=== PATIENT | male | born 1995 | race Caucasian/White ===

== ENCOUNTER 2023-08-28 05:45 | Emergency (ER) | payer OTHER, SELFPAY ==
[2023-08-28 05:59] VITALS: BP 110/70
[2023-08-28] MEDS: TYLENOL 1000 MG PO (06:16)
[2023-08-28 07:13] LABS: COVID-19 Antigen Negative (Negative)
--- NOTE | 2023-08-28 08:14 | ED.GENMED ---
History of Present Illness
General
Chief Complaint: Cough
Source: patient
Time Seen by Provider: 08/28/23 08:07
Travel History
Have you had any contact with someone who has COVID-19?: No
Do you have any symptoms of coronavirus? Fever > 100 degrees, chills, cough, shortness of breath, sore throat, loss of taste or smell, muscle aches, or headache?: No
History of Present Illness
History of Present Illness:
27-year-old male with past medical history of anxiety and depression presenting the emergency department for evaluation of flulike symptoms that started this past , cough, fevers, body aches, chills, this morning woke up feeling as if he had
bubbles in his chest with continuing cough prompting him to contact EMS who brought patient to the ER for further evaluation. No medications were given prior to arrival. No known sick contacts, recent travel or recent antibiotics. Patient denies
any history of respiratory problems. No other concerns at this time.
Past History
Past History
ED Past Medical History: Psychiatric
ED Past Surgical History: Appendectomy
Social History
Tobacco: Non-smoker
Alcohol: None
Drug: None
Personal: Single
Living: with family
Review of Systems
Review of Systems
All Other Systems: ROS reviewed and negative except as documented in HPI and ROS
Phy Exam
Physical Exam
Physical Exam:
GENERAL: Alert , in no apparent distress
EYE: conjunctiva clear
NECK: Supple
ENT: o/p clr, mmm.
CARDIAC: Regular rate and rhythm
LUNGS: Clear breath sounds bilaterally, no acute respiratory distress, no wheezes/rales/rhonchi
NEUROLOGICAL: Alert and oriented
SKIN: Warm and dry, skin intact.
MUSCULOSKELETAL: well perfused.
PSYCH: Normal and appropriate interaction.
Scores
Heart Failure Risk
Heart Failure Risk Score: Not Applicable
Heart Score for Chest Pain Patients
STEMI patient?: Not applicable
Withdrawal Assessment of Alcohol
Withdrawal Assessment Completed?: Not applicable
Course
Orders/Labs/Results
Orders:
Orders
08/28/23 06:09
Chest [CR Chest - 2 Views ] Urgent
Comment:
Reason For Exam: coughing/fever
08/28/23 06:12
Acetaminophen [Tylenol] 1,000 mg .ROUTE .STK-MED ONE
08/28/23 06:15
Acetaminophen [Tylenol] 1,000 mg PO NOW STA
08/28/23 06:21
COVID-19 Antigen Urgent
Source: Nasal Swab
Influenza A+B Rapid Molecular Routine
SHANNAN Source: Nasal Swab
Specimen Description:
Vital Signs
Initial and Last Documented VS:
Initial Vital Signs
Temp Pulse Resp BP Pulse Ox
102.1 F H 104 16 110/70 95
08/28/23 05:59 08/28/23 05:59 08/28/23 05:59 08/28/23 05:59 08/28/23 05:59
Last Documented Vital Signs
Temp Pulse Resp BP Pulse Ox
102.1 F H 104 16 110/70 95
08/28/23 05:59 08/28/23 05:59 08/28/23 05:59 08/28/23 05:59 08/28/23 05:59
MDM/Problems Addressed
Differential Diagnosis Includes:
COVID, flu, other viral etiology, pneumonia
MDM/Problems Addressed:
27-year-old male present emergency department for 3 to 4 days of URI-like symptoms, found to be febrile here at 102.1. No acute respiratory distress. Vital signs outside of pyrexia are within normal limits. Triage initiated COVID and flu swabs as
well as chest x-ray. Patient did test positive for influenza B. Chest x-ray is unremarkable for any acute pathologies. Discussed supportive care with patient in regards to flu. He not a candidate for Tamiflu given symptoms have been ongoing for
greater than 3 days. Discussed return precautions emergency department but otherwise stable for discharge home.
*Radiology
Radiology exam reviewed: preliminary read by ED provider (No acute infiltrates or consolidations)
*Pulse Oximetry
Patient hypoxic: no
*Critical Care Note
Total Time (30-74mins, 75-104mins- exclusive of procedures): Not Applicable
ED Attending Note
-
Portions of this chart may have been created with voice recognition software.� Occasional wrong word or��sound alike� substitutions may have occurred due to the inherent limitations of voice recognition software.
Discharge Plan
Departure
Patient Disposition: Home (Routine Discharge)
Date of Disposition: 08/28/23
Time of Disposition: 08:14
Patient with high blood pressure during this ER visit?: No
Discharge Problem:
Influenza B
Instructions: Flu, Adult (DC)
Stand Alone Forms: Return to Work
Interventions
Interventions:
*Risk Screen - Suicide Last Done: 08/28/23 05:59
*General Assessment Last Done: 08/28/23 05:59
*Neglect/Abuse Screening Last Done: 08/28/23 05:59
ED- Fall Risk Assessment Last Done: 08/28/23 07:58
*ED COVID-19 Vaccine History Last Done: 08/28/23 05:59
ED- Pulmonary Assessment Last Done: 08/28/23 07:58
Discharge Date and Time
Print Language: YI
[2023-08-28 08:24] VITALS: BP 106/67
== END 2023-08-28 08:25 | disposition home or self-care (01) ==
LOC: EMR 05:45
PROVIDERS: EMERGENCY PHYSICIAN Emergency Medicine
DX: J10.1 Influenza due to other identified influenza virus with other respiratory manifestations (principal); F41.9 Anxiety disorder, unspecified; F32.A Depression, unspecified
CPT/HCPCS: 99284; 71046; 87502; 87811

== ENCOUNTER 2024-05-11 14:44 | Emergency (ER) | payer OTHER, SELFPAY ==
[2024-05-11 14:54] VITALS: BP 109/75
[2024-05-11 15:39] VITALS: BMI 25.9
--- NOTE | 2024-05-11 15:52 | ED.GENMED ---
History of Present Illness
General
Chief Complaint: Crisis Evaluation
Source: patient
Exam Limitations: none
Time Seen by Provider: 05/11/24 15:03
Nursing documentation reviewed up to this point in time: agreed with
History of Present Illness
History of Present Illness:
28-year-old male single lives with his family history of anxiety previously on Lexapro stopped due to GI side effects presents with anxiety depression and thoughts of suicide apparently speaks with some friends who give him bad ideas which makes him
suicidal, no drugs or alcohol, no hallucinations, has no plan, states symptoms are worse during the week better on the weekends apparently he made a statement to his family who insisted that he come in today to get evaluated, no drug or alcohol
ingestion no overdose
Past History
Past History
ED Past Medical History: Psychiatric
ED Past Surgical History: Appendectomy
Social History
Tobacco: Non-smoker
Alcohol: None
Drug: None
Personal: Single
Living: with family
Employment: Employed
Review of Systems
Review of Systems
All Other Systems: Not applicable
Psychiatric: Reports depression, anxiety and suicidal; Denies hallucinations
Phy Exam
Physical Exam
Physical Exam:
Physical Exam
General: no apparent distress, not acutely ill
Neck: No jaundice
Heart: s1/s2 regular rate and rhythm, no murmur. equal radial pulses.
Lungs: no acute respiratory distress. clear bilaterally
Neuro: alert and oriented. no focal neurological deficits
Skin: no rash
Psychiatric: Cooperative, not hallucinating admits to suicidal thoughts earlier none now no plan
Extremities: no edema
Course
Orders/Labs/Results
Orders:
Orders
05/11/24 15:43
Crisis Consult Routine
Reason for Consult: anxiety
05/11/24 16:12
Urine Drug Abuse Screen Urgent
Date Specimen was Collected: 05/11/24
Time Specimen was Collected: 16:40
05/11/24 17:06
Acetaminophen Urgent
Alcohol Urgent
Complete Blood Count/With Diff Urgent
Comprehensive Metabolic Panel Urgent
Salicylate Urgent
Abnormal Lab Results
05/11/24
17:06
MCH 31.2 H pg
(27.0-31.0)
Carbon Dioxide 34 H mmol/L
(22-30)
Salicylates < 1.0 L mg/dl
(2.0-20.0)
Acetaminophen < 10 L ug/ml
(10-30)
05/11/24 17:06
05/11/24 17:06
Vital Signs
Initial and Last Documented VS:
Initial Vital Signs
Temp Pulse Resp BP Pulse Ox
98.6 F 96 18 109/75 97
05/11/24 14:54 05/11/24 14:54 05/11/24 14:54 05/11/24 14:54 05/11/24 14:54
Last Documented Vital Signs
Temp Pulse Resp BP Pulse Ox
98.5 F 96 18 109/75 97
05/11/24 15:39 05/11/24 14:54 05/11/24 14:54 05/11/24 14:54 05/11/24 14:54
MDM/Problems Addressed
Differential Diagnosis Includes:
Depression anxiety suicidal thoughts no signs of intoxication or overdose
MDM/Problems Addressed:
Anxiety suicidal
Chronic conditions affecting care: Psychiatric illness
Acute Exacerbation and/or Progression of Chronic Illness: Psychiatric illness
*Pulse Oximetry
Patient hypoxic: no
*Critical Care Note
Total Time (30-74mins, 75-104mins- exclusive of procedures): Not Applicable
Update Note
Update Note:
Vital signs stable no intoxication no ingestion, patient looks well, is cooperative, crisis has been consulted
Update discussed with crisis, mobile crisis saw the patient earlier today recommended inpatient patient voluntary will check some screening labs
Labs noted patient medically clear
ED Attending Note
-
Portions of this chart may have been created with voice recognition software.� Occasional wrong word or��sound alike� substitutions may have occurred due to the inherent limitations of voice recognition software.
Discharge Plan
Departure
Patient Disposition: Psych Facility
Date of Disposition: 05/11/24
Time of Disposition: 19:04
Patient with high blood pressure during this ER visit?: No
Condition: Good
Discharge Problem:
Suicidal ideation
Prescriptions:
No Action
No Current Medications
0
Referrals:
Alfonso Castellanos, DO [Family Provider] -
Interventions
Interventions:
*Risk Screen - Suicide Last Done: 05/11/24 14:49
*General Assessment Last Done: 05/11/24 14:57
*Neglect/Abuse Screening Last Done: 05/11/24 14:57
*ED COVID-19 Vaccine History Last Done: 05/11/24 15:55
ED-Psychological Assessment Last Done: 05/11/24 15:55
Discharge Date and Time
Print Language: MAURITIAN
[2024-05-11 17:14] LABS: % Basophils 0.7 % (0-2); % Eosinophils 0.7 % (0-6); % Immature Granulocytes 0.3 % (0-0.5); % Lymphocytes 38.3 % (20.5-51.1); % Monocytes 7.7 % (1.7-9.3); % Neutrophils 52.3 % (42.2-75.2); Absolute Basophils 0.1 10^3/uL (0-0.2); Absolute Eosinophils 0.1 10^3/uL (0-0.7); Absolute Lymphocytes 2.6 10^3/uL (1.2-3.4); Absolute Monocytes 0.5 10^3/uL (0.1-0.6); Absolute Neutrophils 3.6 10^3/uL (1.4-6.5); Hematocrit 45.8 % (39.0-52.0); Hemoglobin 15.6 g/dL (13.0-18.0); Mean Corp Hgb Conc. 34.1 g/dL (33.0-37.0); Mean Corpuscular Hgb 31.2 pg (27.0-31.0); Mean Corpuscular Volume 91.6 fL (80.0-94.0); Mean Platelet Volume 9.4 fL (7.4-10.4); Nucleated Red Blood Cells % 0 % (-); Platelet Count 252 10^3/uL (130-400); Red Cell Dist. Width 12.1 % (11.5-14.5); White Blood Cell Count 6.9 10^3/uL (4.8-10.8)
[2024-05-11 17:28] LABS: ALT (SGPT) 34 U/L (0-50); AST (SGOT) 28 U/L (17-59); Acetaminophen < 10 ug/ml (10-30); Albumin 4.7 g/dl (3.5-5.0); Alkaline Phosphatase 64 U/L (38-126); Blood Urea Nitrogen 16 mg/dl (9-20); Calcium 9.4 mg/dl (8.4-10.2); Carbon Dioxide 34 mmol/L (22-30); Chloride 100 mmol/L (98-107); Estimated Creatinine Clearance > 125 ml/min; Glucose 92 mg/dl (70-99); Potassium 4.5 mmol/L (3.5-5.1); Salicylate < 1.0 mg/dl (2.0-20.0); Sodium 139 mmol/L (135-145); Total Bilirubin 0.2 mg/dl (0.2-1.3); Total Protein 7.1 g/dl (6.3-8.2); eGFR > 60.00
[2024-05-11 17:29] LABS: Alcohol None Detected
--- NOTE | 2024-05-11 17:56 | EDRN ---
crisis called this RN and notified this RN that the pt is going to be picked up and taken to [facility] at 1930
[2024-05-11 20:03] LABS: Amphetamines Negative (Negative); Barbiturates Negative (Negative); Benzodiazepines Negative (Negative); Buprenorphine Negative (Negative); Cocaine Negative (Negative); Marijuana Negative (Negative); Methadone Negative (Negative); Methamphetamines Negative (Negative); Opiates Negative (Negative); Phencyclidine Negative (Negative); Tricyclic Antidepressants Negative (Negative)
== END 2024-05-11 19:22 ==
LOC: EMR 14:44
PROVIDERS: EMERGENCY PHYSICIAN Emergency Medicine; FAMILY PHYSICIAN Family Medicine
DX: R45.851 Suicidal ideations (principal); F41.8 Other specified anxiety disorders; Z81.8 Family history of other mental and behavioral disorders; Z90.49 Acquired absence of other specified parts of digestive tract
CPT/HCPCS: 99285; 80053; 80143; 80179; 80306; 82077; 85025

== ENCOUNTER 2024-11-19 12:38 | Emergency (ER) | payer OTHER, SELFPAY ==
[2024-11-19] VITALS (11 sets, daily range): BP systolic 99–114; BP diastolic 62–76; BMI 30.7
[2024-11-19 13:42] LABS: % Basophils 0.8 % (0-2); % Eosinophils 0.8 % (0-6); % Immature Granulocytes 0.2 % (0-0.5); % Lymphocytes 42.4 % (20.5-51.1); % Monocytes 5.7 % (1.7-9.3); % Neutrophils 50.1 % (42.2-75.2); Absolute Lymphocytes 2.2 10^3/uL (1.2-3.4); Absolute Monocytes 0.3 10^3/uL (0.1-0.6); Absolute Neutrophils 2.6 10^3/uL (1.4-6.5); Hematocrit 44.8 % (39.0-52.0); Hemoglobin 15.9 g/dL (13.0-18.0); Mean Corp Hgb Conc. 35.5 g/dL (33.0-37.0); Mean Corpuscular Hgb 31.1 pg (27.0-31.0); Mean Corpuscular Volume 87.5 fL (80.0-94.0); Mean Platelet Volume 10.3 fL (7.4-10.4); Nucleated Red Blood Cells % 0 % (-); Platelet Count 235 10^3/uL (130-400); Red Blood Cell Count 5.12 10^6/uL (4.70-6.10); Red Cell Dist. Width 11.7 % (11.5-14.5); White Blood Cell Count 5.1 10^3/uL (4.8-10.8)
[2024-11-19 13:58] LABS: ALT (SGPT) 38 U/L (0-50); AST (SGOT) 29 U/L (17-59); Acetaminophen 13 ug/ml (10-30); Albumin 5.2 g/dl (3.5-5.0); Alcohol None Detected; Alkaline Phosphatase 57 U/L (38-126); Blood Urea Nitrogen 15 mg/dl (9-20); Calcium 10.1 mg/dl (8.4-10.2); Carbon Dioxide 29 mmol/L (22-30); Chloride 103 mmol/L (98-107); Estimated Creatinine Clearance > 125 ml/min; Glucose 88 mg/dl (70-99); Potassium 4.6 mmol/L (3.5-5.1); Salicylate < 1.0 mg/dl (2.0-20.0); Sodium 141 mmol/L (135-145); Total Bilirubin 0.8 mg/dl (0.2-1.3); Total Protein 7.8 g/dl (6.3-8.2); eGFR > 60.00
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
[2024-11-19 17:22] LABS: Acetaminophen 61 ug/ml (10-30)
[2024-11-19 20:09] LABS: Amphetamines Negative (Negative); Barbiturates Negative (Negative); Benzodiazepines Negative (Negative); Buprenorphine Negative (Negative); Cocaine Negative (Negative); Marijuana Negative (Negative); Methadone Negative (Negative); Methamphetamines Negative (Negative); Opiates Negative (Negative); Phencyclidine Negative (Negative); Tricyclic Antidepressants Negative (Negative)
[2024-11-20] VITALS: BP 106/57
[2024-11-20 01:00] VITALS: BP 109/61
[2024-11-20 07:27] VITALS: BP 100/62
== END 2024-11-20 09:25 ==
LOC: EMR 12:38
PROVIDERS: EMERGENCY PHYSICIAN Student in an Organized Health Care Education/Training Program; FAMILY PHYSICIAN Family Medicine
DX: T39.1X2A Poisoning by 4-Aminophenol derivatives, intentional self-harm, initial encounter (principal); F32.A Depression, unspecified
CPT/HCPCS: 99285; 80053; 80143; 80179; 80306; 82077; 85025; 93005